=== PATIENT | male | born 1975 | race Caucasian/White ===

== ENCOUNTER 2017-04-30 13:48 | Emergency (ER) | payer BC ==
[2017-04-30 14:58] VITALS: BP 133/94
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
== END 2017-04-30 15:32 | disposition home or self-care (01) ==
LOC: UCCORT 13:48
DX: L28.0 Lichen simplex chronicus (principal); Z87.891 Personal history of nicotine dependence
CPT/HCPCS: 99212; G0463

== ENCOUNTER 2018-03-30 14:10 | Emergency (ER) | payer BC, OTHER ==
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
[2018-03-30 14:46] VITALS: BP 152/91
[2018-03-30] MEDS ORDERED: Lidocaine 1% MPF* 2 ML VIAL INJ ONE ×2 (15:07→16:02)
[2018-03-30] MEDS ORDERED: Tetan/Diph/Pertus SYR(Tdap)* 0.5 ML SYR(BOOSTRIX) use SYR IM ONE (15:07)
[2018-03-30] MEDS ORDERED: Lidocaine 1% MPF* 2 ML VIAL ONE (15:45)
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
== END 2018-03-30 16:11 | disposition home or self-care (01) ==
LOC: UCCORT 14:10
DX: S61.412A Laceration without foreign body of left hand, initial encounter (principal); W26.0XXA Contact with knife, initial encounter; Y92.9 Unspecified place or not applicable; Z23 Encounter for immunization; Z87.891 Personal history of nicotine dependence
CPT/HCPCS: 12001; 90471; 90715; 99212; G0463